=== PATIENT | female | born 1955 | race Caucasian/White ===

== ENCOUNTER 2018-01-05 15:41 | Observation (INO) ==
[2018-01-05] MEDS ORDERED: 0.9 % Sodium Chloride 1,000 ML IVC ONE (16:03)
[2018-01-05] MEDS ORDERED: Ipratropium/Albuterol Neb 3 ML IH ONE (16:03)
--- NOTE | 2018-01-05 16:06 | Emergency Department Note ---
Disposition Clinical Impression: Congestive heart failure Qualifiers: Heart failure type: unspecified Heart failure chronicity: acute Qualified Code( s): I50.9 - Heart failure, unspecified Disposition: Admitted As Inpatient Condition: Good Referrals: Conrad Burt Jr, MD [Primary Care Provider] - Forms: ED Satisfaction Letter Time of Disposition: 23:44 General Adult HPI - General Chief complaint: ED Shortness of Breath/Dyspnea Stated complaint: "cough,sob,sweating" Time Seen by Provider: 01/05/18 15:56 Source: patient Mode of arrival: ambulatory Limitations: no limitations - History of Present Illness HPI Narrative: This is a 62-year-old female who reports a cough productive of thick sputum started about 2 days prior to arrival with shortness of breath that began 6-8 hours prior to arrival, accompanied by significant fatigue. No fever or chills , no nausea or vomiting Pain Scale: 5 - Related Data Home Medications Medication Instructions Recorded Confirmed Aspirin Enteric Coated [Aspirin EC] 81 mg PO DAILY 01/05/18 01/05/18 Atorvastatin Calcium [Lipitor] 20 mg PO HS 01/05/18 01/05/18 Digoxin [Lanoxin] 250 mcg PO DAILY 01/05/18 01/05/18 Metoprolol Tartrate [Metoprolol 50 mg PO DAILY 01/05/18 01/05/18 Tartrate] Allergies Allergy/AdvReac Type Severity Reaction Status Date / Time estradiol [From Activella] Allergy Hives Verified 01/05/18 16:56 metoprolol Allergy Hives Verified 01/05/18 16:56 norethindrone Allergy Hives Verified 01/05/18 16:56 [From Activella] Penicillins Allergy made her Verified 01/05/18 16:56 sicker being on it than without it. All systems ED: reviewed and negative except as stated. Respiratory: Reports: cough, dyspnea, sputum production Past Medical History - Past Medical History Medical history: Reports: hyperlipidemia, hypertension Psychiatric history: Reports: no psych history - Social History Smoking Status: Current every day smoker Alcohol use: Reports: none Drug use: Reports: none Physical Exam - General Limitations: no limitations General appearance: alert, in distress (Mild distress with cough) - Head Head exam: atraumatic, normocephalic, normal inspection - Chest Chest inspection: Present: normal inspection, symmetric chest wall rise - Respiratory Respiratory exam: Present: wheezes (There are inspiratory wheezes in the bases bilaterally), prolonged expiratory phase. Absent: respiratory distress, stridor , accessory muscle use - Cardiovascular Cardiovascular exam: Present: regular rate, normal rhythm, normal heart sounds - Abdominal Exam Abdominal exam: Present: soft, Non-Tender. Absent: tenderness, distention, guarding, rebound, rigidity - Extremities Exam Extremities exam: Present: normal inspection, full ROM. Absent: tenderness, pedal edema - Neurological Exam Neurological exam: Present: alert, oriented X3 - Psychiatric Psychiatric exam: Present: normal affect, normal mood - Skin Skin exam: Present: warm, dry, intact, normal color Course Course Narrative: This is a 62-year-old female with a history and exam concerning for pneumonia. Vital Signs Temperature 98.1 F 01/05/18 15:47 Pulse Rate 78 01/05/18 15:47 Respiratory Rate 24 01/05/18 15:47 Blood Pressure 195/100 01/05/18 15:47 O2 Sat by Pulse Oximetry 93 01/05/18 15:47 Temperature 98.1 F 01/05/18 17:12 Pulse Rate 80 01/05/18 20:30 Respiratory Rate 18 01/05/18 20:30 Blood Pressure 124/65 01/05/18 20:30 O2 Sat by Pulse Oximetry 95 01/05/18 20:30 Oxygen Delivery Oxygen Delivery Room Air Medical Decision Making - [facility] Narrative Medical decision making narrative: This is a 62-year-old female with shortness of breath. There is no evidence of acute coronary syndrome and no evidence of pulmonary embolism. Chest x-ray showed pulmonary edema. Treatment for pulmonary edema seem to be helpful. I discussed her case with the on-call hospitalist, who accepted her for admission. - Lab Data Lab results narrative: CBC was unremarkable BMP showed BUN elevated at 26 BNP was low at 79 D-dimer was elevated at 1073 Result diagrams: 01/05/18 16:27 01/05/18 16:27 Lab Results 01/05/18 01/05/18 01/05/18 Range/Units 16:27 16:27 16:27 WBC 7.0 (4.3-11.1) K/mcL RBC 4.77 (3.82-4.97) M/mcL Hgb 13.4 (11.5-15.4) g/dL Hct 42.0 (35.3-44.9) % MCV 88.1 (83.0-100.0) fL MCH 28.1 (28.0-33.3) pg MCHC 31.9 (31.6-35.5) g/dL RDW 14.0 (11.5-14.5) % Plt Count 294 (140-400) K/mcL MPV 11.0 (9.4-12.4) fL Immature Gran % 0.3 (0-4) % Seg Neutrophils % 63.9 % Lymphocytes % 25.2 % Monocytes % 8.3 % Eosinophils % 1.7 % Basophils % 0.6 % Neutrophils # 4.5 (1.6-8.9) K/mcL Lymphocytes # 1.8 (0.6-4.6) K/mcL Monocytes # 0.6 (0.0-1.3) K/mcL Eosinophils # 0.1 (0.0-0.6) K/mcL Basophils # 0.0 (0.0-0.2) K/mcL D-Dimer (0-500) ng/mLFEU Sodium 139 (136-145) mEq/L Potassium 3.9 (3.5-5.1) mEq/L Chloride 107 (98-107) mEq/L Carbon Dioxide 25 (23-29) mEq/L BUN 26 H (8-23) mg/dL Creatinine 1.04 (0.60-1.20) mg/dL Est GFR ( Amer) > 60 (> 60) Est GFR (Non-Af Amer) 54 L (> 60) BUN/Creatinine Ratio 25 (6-26) Glucose 91 (70-105) mg/dL Calculated Osmolality 292 (280-300) Calcium 9.3 (8.6-10.3) mg/dL Troponin I < 0.03 (< 0.04) ng/mL B-Natriuretic Peptide 79 (Less than 100) pg/mL 01/05/18 Range/Units 20:50 WBC (4.3-11.1) K/mcL RBC (3.82-4.97) M/mcL Hgb (11.5-15.4) g/dL Hct (35.3-44.9) % MCV (83.0-100.0) fL MCH (28.0-33.3) pg MCHC (31.6-35.5) g/dL RDW (11.5-14.5) % Plt Count (140-400) K/mcL MPV (9.4-12.4) fL Immature Gran % (0-4) % Seg Neutrophils % % Lymphocytes % % Monocytes % % Eosinophils % % Basophils % % Neutrophils # (1.6-8.9) K/mcL Lymphocytes # (0.6-4.6) K/mcL Monocytes # (0.0-1.3) K/mcL Eosinophils # (0.0-0.6) K/mcL Basophils # (0.0-0.2) K/mcL D-Dimer 1073 H (0-500) ng/mLFEU Sodium (136-145) mEq/L Potassium (3.5-5.1) mEq/L Chloride (98-107) mEq/L Carbon Dioxide (23-29) mEq/L BUN (8-23) mg/dL Creatinine (0.60-1.20) mg/dL Est GFR ( Amer) (> 60) Est GFR (Non-Af Amer) (> 60) BUN/Creatinine Ratio (6-26) Glucose (70-105) mg/dL Calculated Osmolality (280-300) Calcium (8.6-10.3) mg/dL Troponin I (< 0.04) ng/mL B-Natriuretic Peptide (Less than 100) pg/mL - Radiology Data Radiology results reviewed: Yes I reviewed the patient's radiology results. Chest x-ray was interpreted by radiology as showing CHF CT chest showed no pulmonary embolism - EKG Data EKG #1 EKG attestation: Yes I reviewed and interpreted this EKG. EKG results narrative: ECG shows a sinus rhythm, 83 bpm, ST depression seen in 2, aVF, leads V4 through V6, no other ST or T-wave abnormalities Critical Care Time Critical Care Time: Yes Total Critical Care Time: 30 Attestation: 30 minutes of critical care time was invested independent of separately billable procedures
[2018-01-05] MEDS ORDERED: Nitroglycerin 0.4 MG TAB.SUBL SL PRN (16:46)
[2018-01-05 16:47] LABS: Basophils % 0.6 %; Eosinophils # 0.1 K/mcL (0.0-0.6); Eosinophils % 1.7 %; Hemoglobin 13.4 g/dL (11.5-15.4); Immature Granulocytes % 0.3 % (0-4); Lymphocytes # 1.8 K/mcL (0.6-4.6); Lymphocytes % 25.2 %; Mean Corpuscular HGB Conc 31.9 g/dL (31.6-35.5); Mean Corpuscular Hemoglobin 28.1 pg (28.0-33.3); Mean Corpuscular Volume 88.1 fL (83.0-100.0); Monocytes # 0.6 K/mcL (0.0-1.3); Monocytes % 8.3 %; Neutrophils # 4.5 K/mcL (1.6-8.9); Platelet Count 294 K/mcL (140-400); Red Blood Count 4.77 M/mcL (3.82-4.97); Segmented Neutrophils % 63.9 %
[2018-01-05] MEDS ORDERED: Furosemide 20 MG/2 ML VIAL IVP ONE (16:47)
[2018-01-05 17:11] LABS: BUN/Creatinine Ratio 25 (6-26); Blood Urea Nitrogen 26 mg/dL (8-23); Calcium 9.3 mg/dL (8.6-10.3); Carbon Dioxide 25 mEq/L (23-29); Chloride 107 mEq/L (98-107); Glucose 91 mg/dL (70-105); Osmolality,Calculated 292 (280-300); Potassium 3.9 mEq/L (3.5-5.1); Sodium 139 mEq/L (136-145); eGFR For Non-African Americans 54 (> 60)
[2018-01-05 20:48] LABS: Troponin I < 0.03 ng/mL (< 0.04)
[2018-01-05] MEDS ORDERED: Isovue-370 500 ML INFUS..BTL IV ONE (21:35)
[2018-01-05] MEDS ORDERED: Albuterol 2.5 MG/3 ML NEBULIZER IH ONE (23:31)
[2018-01-06] MEDS ORDERED: *HR* Enoxaparin 80 MG/0.8 ML SYRINGE SQ STA (00:39)
[2018-01-06] MEDS ORDERED: Naloxone 0.4 MG/ML INJ IVP PRN (00:39)
--- NOTE | 2018-01-06 01:15 | Internal Med History&Physical ---
<Jb Collins - Last Filed: 01/06/18 01:12> Date of Encounter: 01/06/18 Time of Encounter: 01:13 Internal Medicine - H&P: HPI Chief complaint: sob Admitted From: Home Plans for Post Hospital Care: Home History of present illness: Ms. Hinkle is a 62 year old female presents with chief complaint of shortness of breath, cough starting last Monday. Shortness of breath worse with laying flat improves with sitting up. Patient's had difficulty sleeping last 48 hours with increasing coughing spells and worsening sputum production. She reports pleuritic chest pain secondary to coughing spells with several ribs. She denies wheezing. She reports nasal congestion, sinus pressure, postnasal drip. She denies fevers, chills. She works at a [employer] and reports multiple sick contacts. She reports a history of cardiomyopathy. She is on digoxin, metoprolol for this. Patient reports she drinks 2 L of fluids daily and has a high salt intake. She denies any weight gain recently or weight loss. Patient also denies headache, eye pain, eye discharge, ear pain, ear discharge, neck pain, rash. Past Med Surg Social Fam HX - Past Medical History Medical history: CHF, hyperlipidemia, hypertension Additional medical history: Nonischemic cardiomyopathy Psychiatric history: no psych history - Past Surgical History Additional surgical history: back surgery. surgery around the eye. x2 - Social History Smoking Status: Current every day smoker Packs per day: Half a pack Smokeless Tobacco Status: No Alcohol use: none Drug use: none Occupational status: employed Current living situation: Home - Independent Activity Level: Independent ambulation - Family History Mother Living Status: Age at : 62 Cause of : CHF Hx Family Cardiac Disorders: Yes (CHF) Father Living Status: Age at : 81 Cause of : Azheimers Hx Family Cardiac Disorders: Yes (HTN) Internal Medicine - H&P: Meds Aspirin Enteric Coated [Aspirin EC] 81 mg PO DAILY 01/05/18 [History] Atorvastatin Calcium [Lipitor] 20 mg PO HS 01/05/18 [History] Digoxin [Lanoxin] 250 mcg PO DAILY 01/05/18 [History] Metoprolol Tartrate [Metoprolol Tartrate] 50 mg PO DAILY 01/05/18 [History] 3 Allergy/AdvReac Type Severity Reaction Status Date / Time estradiol [From Activella] Allergy Hives Verified 01/05/18 16:56 metoprolol Allergy Hives Verified 01/05/18 16:56 norethindrone Allergy Hives Verified 01/05/18 16:56 [From Activella] Penicillins Allergy made her Verified 01/05/18 16:56 sicker being on it than without it. All Systems PM: A 10-system review of systems was performed and is negative for pertinent findings except as documented above in the HPI. Review of systems: Constitutional: Denies fever, chills HEENT: Denies headache, trauma, blurry vision, eye discharge, ear pain, ear discharge neck pain, reports sore throat, rhinorrhea Heart: Denies chest pain palpitations, LE edema Lungs: Reports shortness of breath, cough, sputum Abdomen: Denies abdominal pain nausea vomiting diarrhea MSK: Denies back pain, falls, joint pain Kidney: Denies dysuria, hematuria Skin: Denies rash, ulcers Neuro: Denies numbness and tingling Psych: denies axniety, depression - Constitutional Vitals: Temp Pulse Resp BP Pulse Ox 98.1 F 95 16 139/73 93 01/06/18 00:45 01/06/18 00:45 01/06/18 00:45 01/06/18 00:45 01/06/18 00:45 Exam: General: pleasant, mild distress, fatigued HEENT: Head atraumatic, normocephalic, EOMI, PERRL, absent ear discharge or trauma, Moist Mucous Membranes, uvula midline Neck: nontender to palpation, absent lymphadenopathy, Cardiovascualr: Regular rate and rhythm with no murmur, gallops or rubs, absent pedal edema, radial pulses 2 out of 4 Lungs: Clear to auscultation bilaterally, not in respiratory distress Abdomen: Soft nontender, nondistended positive bowel sounds, absent hepatomegaly Skin: warm and dry, absent rash, absent open wounds and nodules MSK: absent clubbing, cyanosis, joints without swelling Neuro: Cranial nerves II through XII intact, UE and LE sensation equal bilaterally, UE and LEstrength 5/5, alert oriented 3, Psych: good insight and judgement, anxious, Internal Med - H&P Results - Labs CBC & Chem 7: 01/05/18 16:27 01/05/18 16:27 - Assessment and plan (1) Hypertensive urgency Current Visit: Yes Status: Acute Assessment and plan: patient presented with BP of 195/100 unclear why she was hypertensive EKG normal sinus rhythm with 1mm depressions in V4.V5.V6 improved after given lasix and vasotec in ED now in systolic 120s troponin WNl plan: continue home metoprolol. recommend starting lisinopril. trend troponin. (2) Upper respiratory infection, viral Current Visit: Yes Status: Acute Assessment and plan: patient presented with sob, cough, sputum production x 3 days denies fevers chills reports sick contacts cxr shows cardiomegaly CTA negative for PE, pneumonia plan: symptomatic control, afrin (3) Elevated d-dimer Current Visit: Yes Status: Acute Assessment and plan: concern for PE in ER wells criteria 0 CTA negative d-dimer 1073 absent LE edema will get b/l LE dopplers given one dose of therapeutic lovenox: if dopplers positive for DVT will need to start anticoagulation (4) Congestive heart failure Current Visit: Yes Status: Chronic Assessment and plan: hx of CHF diastolic ECW notes a MANUEL that patient undrwent in 205 to rule out endocarditis had an EF of 65 percent patient does not have LE edema, jvd, rales cxr shows cardiomegaly not in exacerbation most likley her sob, fatigue is from her URI and coughing spells will repeat echocardiogram, continue home metoprolol and digoxin. recommend starting lisinopril as it has shown mortality benefit in CHF Qualifiers: Heart failure type: unspecified Heart failure chronicity: acute Qualified Code(s): I50.9 - Heart failure, unspecified (5) Non-ischemic cardiomyopathy Current Visit: Yes Status: Acute Assessment and plan: hx cardiomyopathy no history of C plan as above continue aspirin and statin. (6) History of tobacco abuse Current Visit: Yes Status: Acute Assessment and plan: patient smoking since age 19 20 pack year history educated on smoking cessation would benefit from out patient PFT - Time Spent With Patient Total time spent is greater than 50% in coordination of care (as documented) at patient's floor/unit and/or counseling patient: <Dave Concepcion - Last Filed: 01/06/18 02:21> Date of Encounter: 01/06/18 Time of Encounter: 01:30 - Constitutional Constitutional: no chills, no fever(s) - EENT Eyes: no blurry vision, no change in vision Ears: no ear pain, no tinnitus Nose, mouth and throat: nasal congestion, post-nasal drip, no neck pain, no sore throat, no throat swelling - Cardiovascular Cardiovascular ROS IM: no chest pain, no diaphoresis, no paroxysmal nocturnal dyspnea - Respiratory Respiratory: cough, dyspnea, no pain on inspiration, no chest congestion, no excessive phlegm production, no change in phlegm color, no pain with cough - Gastrointestinal Gastrointestinal: no abdominal pain, no diarrhea, no hematemesis, no hematochezia, no melena, no vomiting - Genitourinary Genitourinary: no dysuria, no flank pain, no hematuria - Musculoskeletal Musculoskeletal ROS IM: no arthralgias, no back pain - Integumentary Integumentary IM: no rash, no jaundice - Neurological Neurological ROS: no dizziness, no focal weakness, no frequent falls, no headache(s) - Psychiatric Psychiatric: no anxiety, no depression - Endocrine Endocrine IM: no polydipsia, no polyuria - Allergic/Immunologic Allergic/Immunologic: no wheezing, no GI upset with certain foods - Constitutional Vitals: Temp Pulse Resp BP Pulse Ox 98.1 F 95 16 139/73 93 01/06/18 00:45 01/06/18 00:45 01/06/18 00:45 01/06/18 00:45 01/06/18 00:45 General appearance: Present: cooperative, A&O X 3, pleasant, no acute distress - Head Head exam: Present: normal inspection - ENT ENT exam: Present: mucous membranes dry, normal exam, normal oropharynx - Respiratory Respiratory exam: Present: CTAB. Absent: rales, rhonchi, wheezes - Cardiovascular Cardiovascular exam: Present: RRR, +S1, +S2. Absent: bradycardia, distant heart sounds, systolic murmur - GI/Abdominal GI/Abdominal exam: Present: normal bowel sounds, soft. Absent: hepatomegaly, mass, splenomegaly, tenderness - Extremities Exam Extremities exam: Present: full ROM, warm, radial pulses palpable and symmetrical. Absent: calf tenderness, pedal edema, tenderness - Back Exam Back exam: Absent: CVA tenderness (L), CVA tenderness (R) - Neurological Exam Neurological exam: Present: alert, CN II-XII intact, oriented X3, no focal deficits - Psychiatric Psychiatric exam: Present: normal affect, normal mood - Skin Skin exam: Present: dry, warm. Absent: rash Internal Med - H&P Results - Labs CBC & Chem 7: 01/05/18 16:27 01/05/18 16:27 - Assessment and plan (1) Congestive heart failure Current Visit: Yes Status: Chronic Qualifiers: Heart failure type: unspecified Heart failure chronicity: acute Qualified Code(s): I50.9 - Heart failure, unspecified (2) Non-ischemic cardiomyopathy Current Visit: Yes Status: Acute (3) Upper respiratory infection, viral Current Visit: Yes Status: Acute (4) Elevated d-dimer Current Visit: Yes Status: Acute (5) Hypertensive urgency Current Visit: Yes Status: Acute (6) History of tobacco abuse Current Visit: Yes Status: Acute - Time Spent With Patient Total time spent is greater than 50% in coordination of care (as documented) at patient's floor/unit and/or counseling patient: - Attending Attestation I discussed the patient H OPI, past smoker history, review systems, lab data, and exam findings with Dr. Collins. In saw and examined patient independently. Upon my assessment of the patient, her lungs are clear and she shows no signs of CHF. However, based upon critical presentation and response to treatment, she had some evidence of CHF. More concern is for hypertensive urgency likely causing symptoms noted above. Her cough and congestion appear to be viral in nature and only present for 2 days. Antibiotics are not started at this time. I reviewed her EKG and note that she had some ST-T depression laterally in the precordial leads. We will trend troponins and obtain an echocardiogram to assess her LV function. Presently, patient is chest pain-free, has minimal dyspnea, and is in no distress. CT of the chest negative for PE. However, I do recommend obtaining Doppler of her legs to check for DVT. Meanwhile, she will receive 1 dose of Lovenox tonight. Further anti-coagulation will be dictated by the presence of a clot on Doppler. Other than my comments above and noted physical exam findings, I agree Dr. Collins 's assessment and plan.
[2018-01-06] MEDS ORDERED: Oxymetazoline Nasal SPRAY BOTTLE NS PRN (01:32)
[2018-01-06] MEDS: *HR* Digoxin 0.25 MG TABLET PO SCH (10:32)
[2018-01-06] MEDS: Aspirin Enteric Coated 81 MG Tablet PO SCH (10:32)
--- NOTE | 2018-01-06 11:51 | Event Note ---
Date of Encounter: 01/06/18 Time of Encounter: 11:45 62 yo female with sob/cough She has a hx of chf and non compliance per pt with fluid intake and diet. She is on dig + BB Found to have htn urgency with BP 195/100 she currently has bp 170s/90s and mild headache dry hacking cough with difficulty clearing clear sputum with coughing episode at bedside. she denies sob, admits to + wheezing. Denying orthopnea, fevers, chills, nausea or emesis. Denies cp,palpitations, chest pressure. gen- alert, awake lungs- diffuse exp wheezing, no rhonchi, normal resp effort on ra cv- rrr, no m/r/g, no le edema or jvd abd- soft, nt, nd, + bs HTN urgency- ekg NSR with 1mm depressions in v4-6, improved with lasix and vasotec, trending trops neg x3, cont on home lopressor and lisinopril started low dose, she is noting she was on lisinopril in past and had no issues, but bp over time decreased and med was discontinued Viral URI- cxr neg acute findings, CTA neg PE or pna, symptomatic tx- add steroid IV and standing nebs for wheezing and coughing fits, antitussive Elevated dimer- cta neg, BL LE US pending read Chronic diastolic CHF- last EF 65%, clinically euvolemic, cont meds as above and home asa + statin
[2018-01-06] MEDS: MethylPREDNISolone 40 MG/ML VIAL IVP SCH (14:21)
[2018-01-06] MEDS: Ipratropium/Albuterol Neb 3 ML IH SCH ×3 (15:26→23:39)
[2018-01-06] MEDS ORDERED: Acetaminophen 325 MG TABLET PO PRN (16:05)
[2018-01-07] MEDS: Ipratropium/Albuterol Neb 3 ML IH SCH ×3 (04:17→11:18)
--- NOTE | 2018-01-07 07:47 | Internal Med Progress Note ---
Hospitalist Progress Note - Encounter Date of Encounter: 01/07/18 Time of Encounter: 09:05 - Subjective Interval History: resting in bed. no garland today. no cp or pressure. Bp stable this morning. Noting improved frequency of coughing its. no sob, wheezing or sputum. Overall improved. - Exam Vitals: Temp Pulse Resp BP Pulse Ox 98.2 F 91 16 157/80 92 01/07/18 06:58 01/07/18 06:58 01/07/18 06:58 01/07/18 06:58 01/07/18 06:58 Exam: General: awake, alert, apupils equal, round, moist mucus membranes, clear oropharynx Cardiovascular:regular rate and rhythm, normal S1 & S2, no rubs, murmurs or gallops. No JVD. no lower extremity edema Lungs:Normal breath sounds, no wheezes, or crackles. Normal respiratory effort on room air Extremities:No deformity, no edema or tenderness, no joint swelling or clubbing. Neurological: AAOx3 Skin:Normal color, no rash, no pallor - Assessment and Plan (1) Upper respiratory infection, viral Current Visit: Yes Status: Acute Assessment and Plan: cxr neg acute findings, CTA neg PE or pna, symptomatic tx- added steroid IV for wheezing and bronchospasm and standing nebs for wheezing and coughing fits, antitussive -improved and sats stable on room air -ambulating without symptoms -dc to home with proair inhaler, anti tussives and outpt fu (2) Elevated d-dimer Current Visit: Yes Status: Acute Assessment and Plan: No evidence of acute clot at this time cta neg, BL LE US prelim read negative (3) Hypertensive urgency Current Visit: Yes Status: Resolved Assessment and Plan: BPs now stable 150 sbps/60s-80s asx from 210/90-100 on admit ekg NSR with 1mm depressions in v4-6, improved with lasix and vasotec, -trops neg x3, -cont on home lopressor and lisinopril started low dose, she is noting she was on lisinopril in past and had no issues, but bp over time decreased and med was discontinued -stable on Lisinopril and Lopressor, further titration of meds as outpt so as to not decrease BPs too rapidly -will require fu outpt with pcp for further monitoring and management (4) History of tobacco abuse Current Visit: Yes Status: Acute Assessment and Plan: patient smoking since age 19 20 pack year history educated on smoking cessation would benefit from out patient PFTs with pcp (5) Congestive heart failure Current Visit: Yes Status: Chronic Assessment and Plan: Chronic diastolic CHF- last EF 65%, clinically euvolemic, cont meds as above and home asa + statin (6) Non-ischemic cardiomyopathy Current Visit: Yes Status: Acute Assessment and Plan: see above DVT Prophylaxis: sqh - Time Spent with Patient Total time spent is greater than 50% in coordination of care (as documented) at patient's floor/unit and/or counseling patient: 25 - 35 minutes Plan of Care Discussed with: patient Internal Medicine: Result - Labs CBC & Chem 7: 01/05/18 16:27 01/05/18 16:27 Labs: Cardiac Enzymes 01/06/18 Range/Units 09:03 Troponin I < 0.03 (< 0.04) ng/mL - ABG Interpretation ABG results: PT/INR, D-dimer D-Dimer 1073 ng/mLFEU (0-500) H 01/05/18 20:50 Consult Discharge Plan - Plan Referrals: Conrad Burt Jr, MD [Primary Care Provider] - (5) Congestive heart failure Qualifiers: Heart failure type: unspecified Heart failure chronicity: acute Qualified Code(s): I50.9 - Heart failure, unspecified
[2018-01-07] MEDS: Aspirin Enteric Coated 81 MG Tablet PO SCH (09:31)
[2018-01-07] MEDS: MethylPREDNISolone 40 MG/ML VIAL IVP SCH (09:31)
[2018-01-07] MEDS: *HR* Digoxin 0.25 MG TABLET PO SCH (09:31)
[2018-01-07 11:40] VITALS: BP 151/68
--- NOTE | 2018-01-07 13:00 | Discharge Summary ---
- NOTES TO OUTPATIENT PROVIDER Notes to Outpatient Provider: treated for htn urgency with meds adjusted. addl dx suspected viral URI. Of note, had elevated dimer but cta neg for pe and prelim read on us le is negative for dvt. Date of Encounter: 01/07/18 Time of Encounter: 09:05 - Discharge Diagnosis (1) Upper respiratory infection, viral Priority: Secondary Status: Acute Assessment and Plan: cxr neg acute findings, CTA neg PE or pna, symptomatic tx- added steroid IV for wheezing and bronchospasm and standing nebs for wheezing and coughing fits, antitussive -improved and sats stable on room air -ambulating without symptoms -dc to home with proair inhaler, anti tussives and outpt fu (2) Elevated d-dimer Priority: Secondary Status: Acute Assessment and Plan: No evidence of acute clot at this time cta neg, BL LE US prelim read negative (3) Hypertensive urgency Priority: Primary Status: Resolved Assessment and Plan: BPs now stable 150 sbps/60s-80s asx from 210/90-100 on admit ekg NSR with 1mm depressions in v4-6, improved with lasix and vasotec, -trops neg x3, -cont on home lopressor and lisinopril started low dose, she is noting she was on lisinopril in past and had no issues, but bp over time decreased and med was discontinued -stable on Lisinopril and Lopressor, further titration of meds as outpt so as to not decrease BPs too rapidly -will require fu outpt with pcp for further monitoring and management (4) History of tobacco abuse Priority: Secondary Status: Acute Assessment and Plan: patient smoking since age 19 20 pack year history educated on smoking cessation would benefit from out patient PFTs with pcp (5) Congestive heart failure Priority: Secondary Status: Chronic Assessment and Plan: Chronic diastolic CHF- last EF 65%, clinically euvolemic, cont meds as above and home asa + statin Qualifiers: Heart failure type: unspecified Heart failure chronicity: acute Qualified Code(s): I50.9 - Heart failure, unspecified (6) Non-ischemic cardiomyopathy Priority: Secondary Status: Acute Assessment and Plan: see above Hospital course: Ms. Hinkle is a 62 year old female suspected viral URI which was treated symptomatically and noted to be in htn urgency treated with medication adjustments. details of complete course above. discharged to home in stable cont with continued management outpt Discharge discussed with: patient - Time Spent with Patient Total time spent providing and/or coordinating discharge services: Less than 30 minutes - Discharge Medications Prescriptions: Albuterol Sulfate [Proair Hfa] 1 puff IH Q6HR PRN #1 inh PRN Reason: Shortness Of Breath/Wheezing Benzonatate [Tessalon] 100 mg PO TID PRN #15 capsule PRN Reason: Cough Lisinopril [Zestril] 10 mg PO DAILY #30 tablet predniSONE [PredniSONE] See Taper PO DAILY #6 tablet Home Medications: Aspirin Enteric Coated [Aspirin EC] 81 mg PO DAILY 01/05/18 [History] Atorvastatin Calcium [Lipitor] 20 mg PO HS 01/05/18 [History] Digoxin [Lanoxin] 250 mcg PO DAILY 01/05/18 [History] Metoprolol Tartrate 50 mg PO DAILY 01/05/18 [History] Albuterol Sulfate [Proair Hfa] 1 puff IH Q6HR PRN #1 inh 01/07/18 [Rx] Benzonatate [Tessalon] 100 mg PO TID PRN #15 capsule 01/07/18 [Rx] Lisinopril [Zestril] 10 mg PO DAILY #30 tablet 01/07/18 [Rx] predniSONE [PredniSONE] See Taper PO DAILY #6 tablet 01/07/18 [Rx] Allergies/Adverse Reactions: 3 Allergy/AdvReac Type Severity Reaction Status Date / Time estradiol [From Activella] Allergy Hives Verified 01/05/18 16:56 metoprolol Allergy Hives Verified 01/05/18 16:56 norethindrone Allergy Hives Verified 01/05/18 16:56 [From Activella] Penicillins Allergy made her Verified 01/05/18 16:56 sicker being on it than without it. Date of admission: 01/05/18 23:59 Primary care physician: Conrad Burt Jr, MD Discharging clinician: Kathi Wolfe - Constitutional Vitals: Temp Pulse Resp BP Pulse Ox 97.9 F 81 16 151/68 91 01/07/18 11:39 01/07/18 11:39 01/07/18 11:39 01/07/18 11:39 01/07/18 11:39 General appearance: Present: cooperative, A&O X 3, pleasant, no acute distress Exam: General: awake, alert, apupils equal, round, moist mucus membranes, clear oropharynx Cardiovascular:regular rate and rhythm, normal S1 & S2, no rubs, murmurs or gallops. No JVD. no lower extremity edema Lungs:Normal breath sounds, no wheezes, or crackles. Normal respiratory effort on room air Extremities:No deformity, no edema or tenderness, no joint swelling or clubbing. Neurological: AAOx3 Skin:Normal color, no rash, no pallor - Patient Status Disposition: Home, Self-Care Condition: Good Overall status at discharge: patient is back to baseline - Discharge Instructions Follow Up With: Conrad Burt Jr, MD [Primary Care Provider] - - Diet and Activity Activity: increase activity as tolerated Diet: advance to your usual diet
[2018-01-07] MEDS ORDERED: *HR* Heparin 5,000 UNIT/ML VIAL SQ SCH (14:00)
--- NOTE | 2018-01-09 11:13 | Electrocardiograph Report ---
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
== END 2018-01-07 14:04 | disposition home or self-care (01) ==
LOC: 3BNU 15:41 → EMEROOARM 15:41 → SUATTDRO 23:59 → 3BNU 01-06 00:32
PROVIDERS: ADMIT Pediatrics; ATTEND Internal Medicine